=== PATIENT | female | born 1995 | race Caucasian/White ===

== ENCOUNTER → 2017-02-07 | Outpatient (CLI) | payer BC ==
--- NOTE | 2017-02-08 09:29 | US ---
EXAM DESCRIPTION: Pelvic,Non-OB CLINICAL HISTORY: 21 years, Female, POLYCYSTIC OVARIAN SYNDROME COMPARISON: None. FINDINGS: Transabdominal sonography through the distended bladder was performed and demonstrates no free pelvic fluid. An anteverted normally positioned uterus measuring 7.3 x 4.1 x 4.5 cm is present with a 3.5 mm endometrial stripe. Small amount of echogenic material in the region of the vaginal fornix adjacent to the cervical external os is evident and likely represents intraluminal blood from the patient's menstrual cycle or material within the vaginal lumen. A mass in the region of the vaginal fornix or cyst cervical os is thought unlikely. Left ovary is 2.6 x 2.5 x 1.2 cm and demonstrates multiple small follicles. The left ovary is slightly larger and measures 4.3 x 2.3 x 2.5 cm. An oval 2.2 cm slightly prominent follicle involving the right ovary is present. No adnexal or free pelvic fluid is seen. IMPRESSION: 1. Anteverted normal appearing uterus with small normal left ovary and upper normal right ovary with 2.2 cm oval small follicle. 2. Small amount of echogenic material that appears to be within the lumen of the vaginal fornix adjacent to the uterine cervix and likely is related to the patient's menstrual cycle with a small amount of blood or debris within the vaginal lumen. An intravaginal mass is thought unlikely. Electronically signed by: Declan Bajwa MD 02/08/2017 9:28 AM CDT
== END | disposition home or self-care (01) ==
LOC: US 13:18
PROVIDERS: ATTEND Nurse Practitioner Family
DX: E28.2 Polycystic ovarian syndrome (principal)

== ENCOUNTER → 2017-04-21 | Outpatient (CLI) | payer BC ==
--- NOTE | 2017-04-21 17:15 | US ---
EXAM DESCRIPTION: Soft Tissue,Head/Neck: ULTRASOUND. CLINICAL HISTORY: LUMP/SWELLING. Base of left neck. COMPARISON: None Available. TECHNIQUE: Transcutaneous scanning: Two-dimensional and Doppler modes.. Base of left neck. Masses palpable. FINDINGS: Isoechoic tissue to the surrounding adipose tissue in the subcutaneous left neck. Dimensions are 4.7 x 2.0 x 1.2 cm. No abnormal Doppler vascularity. No fluid collection or large calcifications. IMPRESSION: Palpable mass is most likely a lipoma with greatest diameter 4.7 cm. Electronically signed by: Bhupendra Da Silva MD 04/21/2017 5:14 PM [facility]
== END | disposition home or self-care (01) ==
LOC: US 09:23
PROVIDERS: ATTEND Nurse Practitioner Family
DX: I49.9 Cardiac arrhythmia, unspecified (principal)